=== PATIENT | female | born 1990 | race Caucasian/White ===

== ENCOUNTER → 2016-08-11 | Outpatient (CLI) | payer BC ==
--- NOTE | 2016-08-12 09:27 | US ---
HISTORY: Intrauterine , anatomy Study: Ob sonogram Comparison: None Technique: Multiple grayscale sonographic images were obtained. Findings: There is a single intrauterine gestation in breech presentation. The placenta is anterior. Amniotic fluid volume was visually normal. heart rate 152 beats per minute. Survey of anatomy demonstrated normal 4 chamber heart, stomach, bladder, bilateral kidneys, bi lateral upper and lower extremities, facial features, 3 vessel cord and cord insertion, and in tact spine. Biparietal diameter 4.7 centimeters corresponding to 20 weeks 1 day. Head circumference 17.27 centim eters corresponding to 19 weeks 6 days. Abdominal circumference 14.67 centimeters corresponding to 2 0 weeks. Femur length 3.23 centimeters corresponding to 20 weeks. IMPRESSION: Single viable intrauterine gestation 20 weeks 4 days +/-1 week gestational age with an estimated melody e of delivery December 25, 2016 No anomaly or abnormality identified. Reported By:
== END ==
LOC: RAD 16:04
PROVIDERS: ATTEND Nurse Practitioner Women's Health
DX: Z34.82 Encounter for supervision of other normal pregnancy, second trimester (principal)

== ENCOUNTER → 2016-11-27 | Outpatient (CLI) | payer BC ==
--- NOTE | 2016-11-27 13:14 | US ---
HISTORY: 35 week OB. Study: OB ultrasound greater than 14 weeks Comparison: OB ultrasound dated August 11, 2016. Technique: Multiple grayscale and color flow Doppler images of the pelvis were obtained with focused evaluation of the fetus. Findings: A viable single intrauterine is identified with heart tones of 146 beats per minute. A transverse presentation is observed with anterior and fundal placenta. Normal amniotic fluid vo lume is observed with an ASHKAN of 9.9 cm. Limited evaluation of anatomy demonstrates no signific ant abnormality. Suggestion of a small left testicular hydrocele. Value Estimated Gestational Age BPD 8.80 cm 35 weeks 5 days. HC 31.8 cm 35 weeks 5 days. AC 30.3 cm 34 weeks 1 day. FL 6.60 cm 34 weeks 1 day. IMPRESSION: A viable single intrauterine with an average ultrasound age of 35 weeks 0 days correspond to an estimated date of delivery of December 22, 2016. No obvious anatomical abnormalities can be identified. Reported By:
== END ==
LOC: RAD 12:18
PROVIDERS: ATTEND Nurse Practitioner Women's Health
DX: Z34.83 Encounter for supervision of other normal pregnancy, third trimester (principal); Z3A.35 35 weeks gestation of pregnancy
CPT/HCPCS: 76815